=== PATIENT | female | born 1985 | race Two or more races ===

== ENCOUNTER 2024-09-22 14:27 | Emergency (ER) | payer OTHER ==
[~2024-09-22] VITALS: Ht 165.1 cm; Wt 124.3 kg
[2024-09-22] MEDS ORDERED: HUMALOG100 UNIT/2 SQ (16:00)
[2024-09-22] MEDS ORDERED: LANTUS SOL100 UNIT/1 SQ (16:00)
[2024-09-22] MEDS ORDERED: NEURONTIN300 MG (16:01)
[2024-09-22] MEDS ORDERED: TRULICITY1.5 MG/0.5 SQ (16:01)
[2024-09-22] MEDS ORDERED: CHILDREN'S ASPI81 MG PO (16:02)
[2024-09-22] MEDS ORDERED: SYNTHROID150 MCG PO (16:02)
[2024-09-22] MEDS ORDERED: COZAAR25 MG PO (16:02)
[2024-09-22] MEDS ORDERED: SIMVASTATIN20 MG PO (16:02)
[2024-09-22] MEDS ORDERED: CEFTRIAXONE SODIUM 1,000 MG VIAL IM STA (16:43)
[2024-09-22] MEDS ORDERED: DEXAMETHASONE SODIUM PHOSPHATE 4 MG/ML VIAL IM STA (16:43)
[2024-09-22] MEDS ORDERED: KETOROLAC TROMETHAMINE 30 MG VIAL IM STA (16:44)
[2024-09-22] MEDS ORDERED: BACTRIM DS TAB1 EACH PO (16:55)
[2024-09-22] MEDS ORDERED: KETOROLAC TROMETHAMINE 30 MG VIAL ONE (16:57)
[2024-09-22] MEDS ORDERED: CEFTRIAXONE SODIUM 1,000 MG VIAL ONE (16:58)
[2024-09-22] MEDS ORDERED: DEXAMETHASONE SODIUM PHOSPHATE 4 MG/ML VIAL ONE (16:58)
[2024-09-22] MEDS ORDERED: LIDOCAINE HCL 1% 10ML VIAL ONE (16:58)
== END 2024-09-22 17:19 | disposition home or self-care (01) ==
LOC: ER 14:29
DX: S90.812A Abrasion, left foot, initial encounter (principal); L08.9 Local infection of the skin and subcutaneous tissue, unspecified; E11.9 Type 2 diabetes mellitus without complications; Z79.4 Long term (current) use of insulin

== ENCOUNTER 2024-09-24 10:42 | Inpatient (IN) | payer OTHER ==
[~2024-09-24] VITALS: Ht 167.6 cm; Wt 113.4 kg
[~2024-09-24 10:42] MED LIST: BACTRIM DS TAB1 EACH PO; CHILDREN'S ASPI81 MG PO; COZAAR25 MG PO; HUMALOG100 UNIT/2 SQ; LANTUS SOL100 UNIT/1 SQ; NEURONTIN300 MG; SIMVASTATIN20 MG PO; SYNTHROID150 MCG PO; TRULICITY1.5 MG/0.5 SQ
--- NOTE | 2024-09-24 11:57 | NUR ---
PACIENTE ALERTA Y ORIENTADA X3 QUIEN PRESENTA CELLULITIS EN PIE CONTRERAS, EL MISMO PRESENTA LIQUIDO PURULENTO Y AREA ABIERTA, PACIENTE DIABETICA.
[2024-09-24] MEDS ORDERED: 0.9 % SODIUM CHLORIDE 1,000 ML IV STA (12:08)
[2024-09-24] MEDS ORDERED: PIPERACILLIN/TAZOBACTAM SODIUM 3.375 GM VIAL IV ONE ×3 (12:15→23:49)
[2024-09-24 13:27] LABS: HEMATOCRIT 34.2 % (36.0-45.00); HEMOGLOBIN 11.8 g/dL (12.0-15.00); MEAN CORPUSCULAR HEMOGLOBIN 27.8 pg (27.00-32.0); MEAN CORPUSCULAR HGB CONC 34.3 g/dl (32.0-36.0); PLATELET COUNT 295 K/uL (150-450); RED BLOOD COUNT 4.22 M/uL (4.00-6.00); RED CELL DISTRIBUTION WIDTH 15.2 % (11.5-14.5)
[2024-09-24 13:42] LABS: URINE APPEARANCE Clear; URINE BILIRRUBIN Negative (NEGATIVE); URINE BLOOD NHT; URINE COLOR Yellow; URINE LEUKOCYTE Trace; URINE NITRATE Negative; URINE PROTEIN Trace (NEGATIVE)
[2024-09-24 13:45] LABS: URINE BACTERIA 423.3 uL (0.0-1933); URINE EPITHELIAL CELLS 21.5 uL (0.0-38.8); URINE RBC 37.1 uL (0.0-20.8); URINE WBC 165.7 uL (0.0-23.2)
[2024-09-24 13:50] LABS: CALCIUM 9.3 mg/dL (8.5-10.1); CREATININE SERUM 0.85 mg/dL (0.55-1.02); GFR 75.26; INR 1.05; POTASSIUM 4.07 mEq/L (3.5-5.1); PROTHROMBIN TIME 11.4 SECONDS (9.0-11.5)
--- NOTE | 2024-09-24 13:57 | NUR ---
PTE ES ORIENTADA SOBRE TX MEDICO POR ALEJANDRINA SIU. SE CANALIZA A PTE EN BRAZO QUINTIN CON ANGIO #[id number], SE RECOLECTAN MUESTRAS DE LAB Y SE ADMINISTRAN MEDICAMENTOS MAEGAN ORDEN MEDICA BAJO MEDIDAS ASEPTICAS.
[2024-09-24 14:50] LABS: URINE GLUCOSE >=1000 MG/DL (NEGATIVE); URINE KETONE 40 (NEGATIVE)
[2024-09-24] MEDS ORDERED: 0.9 % SODIUM CHLORIDE 1,000 ML IV SCH (19:00)
[2024-09-24] MEDS ORDERED: ACETAMINOPHEN 500 MG GEL..CAP PO PRN (19:00)
[2024-09-24] MEDS ORDERED: GABAPENTIN 100 MG CAPSULE PO SCH (19:01)
[2024-09-24] MEDS ORDERED: INSULIN LISPRO 1,000 UNIT/10 ML UNITS SUBCUTANEO PRN (19:15)
[2024-09-24] MEDS ORDERED: DEXTROSE 50 % IN WATER 0.5 G/ML DISP.SYRIN IV PRN (19:15)
[2024-09-24] MEDS ORDERED: INSULIN LISPRO 1,000 UNIT/10 ML UNITS SUBCUTANEO ONE (20:29)
[2024-09-24 23:35] VITALS: BP 96/65; O2SAT 98
[2024-09-25] MEDS ORDERED: PIPERACILLIN/TAZOBACTAM SODIUM 3.375 GM in DEXTROSE 5 % IN WATER 100 ML IV SCH
[2024-09-25 04:00] VITALS: BP 141/75; O2SAT 97
[2024-09-25] MEDS ORDERED: LEVOTHYROXINE SODIUM 150 MCG TABLET PO SCH (06:00)
[2024-09-25] MEDS ORDERED: VANCOMYCIN HCL 1,000 MG VIAL IV SCH (09:00)
[2024-09-25] MEDS ORDERED: LOSARTAN POTASSIUM 25 MG TABLET PO SCH (09:00)
[2024-09-25] MEDS ORDERED: ENOXAPARIN SODIUM 40 MG/0.4 ML SYRINGE SUBCUTANEO SCH (09:00)
[2024-09-25 09:07] VITALS: BP 131/62; O2SAT 100
[2024-09-25] MEDS ORDERED: SIMVASTATIN 20 MG TABLET PO SCH (17:00)
[2024-09-25] MEDS ORDERED: CHLORHEXIDINE GLUCONATE 120 ML BOTTLE TOP SCH (17:00)
[2024-09-25] MEDS ORDERED: LACTOBACILLUS ACIDOPHILUS 1 CAP CAP PO SCH (17:00)
[2024-09-25] MEDS ORDERED: MUPIROCIN 22 GM OINT..GM TUBE NASAL SCH (17:00)
[2024-09-25 18:39] VITALS: BP 157/69; O2SAT 98
[2024-09-25] MEDS ORDERED: LINEZOLID IN DEXTROSE 5% 600 MG/300 ML PIGGYBAG IV SCH (21:00)
[2024-09-26 01:24] VITALS: BP 143/70
[2024-09-26 05:10] LABS: HEMATOCRIT 30.9 % (36.0-45.00); MEAN CELL VOLUME 80.8 fL (80.00-100.00); MEAN CORPUSCULAR HGB CONC 33.7 g/dl (32.0-36.0); PLATELET COUNT 251 K/uL (150-450); RED BLOOD COUNT 3.83 M/uL (4.00-6.00); RED CELL DISTRIBUTION WIDTH 15.2 % (11.5-14.5)
[2024-09-26 05:23] LABS: HEMOGLOBIN 10.4 g/dL (12.0-15.00); MEAN CORPUSCULAR HEMOGLOBIN 27.1 pg (27.00-32.0)
[2024-09-26 05:24] LABS: ERYTHROCYTE SEDIMENTATION RATE 116 mm/hr
[2024-09-26 06:11] LABS: CHOL HDL RATIO 3.6 (0-5.0); T4 FREE 1.26 NG/ML (0.76-1.46)
[2024-09-26 06:33] LABS: TSH 8.52 uIU/mL (0.358-3.74)
[2024-09-26] MEDS ORDERED: INSULIN LISPRO 1,000 UNIT/10 ML UNITS SUBCUTANEO STA (08:14)
[2024-09-26 08:29] VITALS: BP 130/73; O2SAT 97
[2024-09-26] MEDS ORDERED: INSULIN GLARGINE,HUM.REC.ANLOG 1,000 UNITS/10 ML UNITS SUBCUTANEO SCH ×2 (09:00→21:00)
[2024-09-26] MEDS ORDERED: INSULIN LISPRO 1,000 UNIT/10 ML UNITS SUBCUTANEO SCH (12:00)
[2024-09-26 12:37] LABS: ALBUMIN 2.6 gm/dL (3.4-5.0); BILIRUBIN TOTAL 0.97 mg/dL (0.3-1.2); CALCIUM 8.4 mg/dL (8.5-10.1); CREATININE SERUM 0.64 mg/dL (0.55-1.02); GFR 104.41; GLOBULINA 4.8 G/DL (2.4-3.5); POTASSIUM 3.81 mEq/L (3.5-5.1); TOTAL PROTEIN 7.4 gm/dL (6.4-8.2)
[2024-09-26] MEDS ORDERED: KETOROLAC TROMETHAMINE 30 MG VIAL IM PRN (13:45)
[2024-09-26 16:51] VITALS: BP 157/78; O2SAT 98
[2024-09-27 01:55] VITALS: BP 99/49
[2024-09-27] MEDS ORDERED: LEVOTHYROXINE SODIUM 175 MCG TABLET PO SCH (06:00)
[2024-09-27] MEDS ORDERED: INSULIN LISPRO 1,000 UNIT/10 ML UNITS SUBCUTANEO SCH (08:00)
[2024-09-27 08:56] VITALS: BP 140/76
[2024-09-27] MEDS ORDERED: GABAPENTIN 100 MG CAPSULE PO SCH (17:00)
[2024-09-27 17:29] VITALS: BP 130/60
[2024-09-28 04:29] LABS: ERYTHROCYTE SEDIMENTATION RATE 71 mm/hr
[2024-09-28 04:39] LABS: HEMATOCRIT 28.3 % (36.0-45.00); HEMOGLOBIN 9.5 g/dL (12.0-15.00); MEAN CORPUSCULAR HEMOGLOBIN 26.9 pg (27.00-32.0); MEAN CORPUSCULAR HGB CONC 33.6 g/dl (32.0-36.0); PLATELET COUNT 285 K/uL (150-450); RED BLOOD COUNT 3.54 M/uL (4.00-6.00); RED CELL DISTRIBUTION WIDTH 15.3 % (11.5-14.5)
[2024-09-28 05:16] LABS: ALBUMIN 2.3 gm/dL (3.4-5.0); BILIRUBIN TOTAL 0.66 mg/dL (0.3-1.2); CALCIUM 8.6 mg/dL (8.5-10.1); CREATININE SERUM 0.76 mg/dL (0.55-1.02); GFR 85.63; GLOBULINA 4.4 G/DL (2.4-3.5); POTASSIUM 3.88 mEq/L (3.5-5.1); TOTAL PROTEIN 6.7 gm/dL (6.4-8.2)
[2024-09-28 05:18] LABS: C-REACTIVE PROTEIN 14.7 MG/DL (0.00-0.29)
[2024-09-28 08:42] VITALS: BP 147/78
[2024-09-28] MEDS ORDERED: MEROPENEM 500 MG/VIAL VIAL IV STA (13:54)
[2024-09-28 17:21] VITALS: BP 164/75; O2SAT 98
[2024-09-28] MEDS ORDERED: MEROPENEM 500 MG/VIAL VIAL IV SCH (18:00)
[2024-09-28] MEDS ORDERED: LINEZOLID 600 MG TABLET PO SCH (21:00)
[2024-09-28] MEDS ORDERED: INSULIN GLARGINE,HUM.REC.ANLOG 1,000 UNITS/10 ML UNITS SUBCUTANEO SCH (21:00)
[2024-09-29 02:30] VITALS: BP 107/54
[2024-09-29 08:28] VITALS: BP 140/70
[2024-09-29 16:00] VITALS: BP 140/57
[2024-09-30 01:53] VITALS: BP 118/62; O2SAT 96
[2024-09-30 06:31] LABS: HEMATOCRIT 29.2 % (36.0-45.00); HEMOGLOBIN 9.8 g/dL (12.0-15.00); MEAN CELL VOLUME 81.1 fL (80.00-100.00); MEAN CORPUSCULAR HEMOGLOBIN 27.3 pg (27.00-32.0); MEAN CORPUSCULAR HGB CONC 33.7 g/dl (32.0-36.0); PLATELET COUNT 290 K/uL (150-450); RED CELL DISTRIBUTION WIDTH 15.1 % (11.5-14.5)
[2024-09-30 06:42] LABS: ALBUMIN 2.3 gm/dL (3.4-5.0); BILIRUBIN TOTAL 0.43 mg/dL (0.3-1.2); C-REACTIVE PROTEIN 11.2 MG/DL (0.00-0.29); CALCIUM 8.6 mg/dL (8.5-10.1); CREATININE SERUM 0.6 mg/dL (0.55-1.02); GFR 112.49; GLOBULINA 4.3 G/DL (2.4-3.5); POTASSIUM 4.32 mEq/L (3.5-5.1); TOTAL PROTEIN 6.6 gm/dL (6.4-8.2)
[2024-09-30 08:20] VITALS: BP 156/75; O2SAT 98
[2024-09-30 08:51] LABS: ERYTHROCYTE SEDIMENTATION RATE 118 mm/hr
[2024-09-30 16:00] VITALS: BP 119/52
[2024-09-30] MEDS ORDERED: LORazepam 0.5 MG TABLET PO SCH (21:00)
[2024-09-30] MEDS ORDERED: INSULIN GLARGINE,HUM.REC.ANLOG 1,000 UNITS/10 ML UNITS SUBCUTANEO SCH (21:00)
[2024-10-01 01:28] VITALS: BP 142/58
[2024-10-01 06:47] LABS: HEMATOCRIT 26.9 % (36.0-45.00); HEMOGLOBIN 9.4 g/dL (12.0-15.00); MEAN CELL VOLUME 79.8 fL (80.00-100.00); MEAN CORPUSCULAR HEMOGLOBIN 27.9 pg (27.00-32.0); PLATELET COUNT 302 K/uL (150-450); RED BLOOD COUNT 3.37 M/uL (4.00-6.00); RED CELL DISTRIBUTION WIDTH 15.2 % (11.5-14.5)
[2024-10-01 07:10] LABS: ALBUMIN 2.3 gm/dL (3.4-5.0); BILIRUBIN TOTAL 0.4 mg/dL (0.3-1.2); CALCIUM 8.6 mg/dL (8.5-10.1); CREATININE SERUM 0.7 mg/dL (0.55-1.02); GFR 94.15; GLOBULINA 4.4 G/DL (2.4-3.5); POTASSIUM 4.08 mEq/L (3.5-5.1); TOTAL PROTEIN 6.7 gm/dL (6.4-8.2)
[2024-10-01 08:32] VITALS: BP 161/78; O2SAT 98
[2024-10-01 17:02] VITALS: BP 138/63; O2SAT 97
[2024-10-02 00:50] VITALS: BP 133/64; O2SAT 96
[2024-10-02 08:17] VITALS: BP 134/74; O2SAT 94
[2024-10-02] MEDS ORDERED: MULTIVIT INFUSN,ADULT 4,VIT K 10 ML VIAL IV NR (13:30)
[2024-10-02] MEDS ORDERED: PYRIDOXINE HCL 100 MG TABLET PO NR (13:30)
[2024-10-02] MEDS ORDERED: Cyanocobalamin/Mecobalamin 1 TAB.SL SL NR (13:30)
[2024-10-02] MEDS ORDERED: SOD FERRIC GLUC COMPLX/SUCROSE 62.5 MG in 0.9 % SODIUM CHLORIDE 50 ML IV NR (13:30)
[2024-10-02 16:31] VITALS: BP 156/75; O2SAT 96
[2024-10-03 00:13] VITALS: BP 141/66
[2024-10-03 07:24] LABS: ALBUMIN 2.5 gm/dL (3.4-5.0); BILIRUBIN TOTAL 0.56 mg/dL (0.3-1.2); C-REACTIVE PROTEIN 6.57 MG/DL (0.00-0.29); CALCIUM 8.8 mg/dL (8.5-10.1); CREATININE SERUM 0.67 mg/dL (0.55-1.02); GFR 99.04; GLOBULINA 5.1 G/DL (2.4-3.5); POTASSIUM 4.57 mEq/L (3.5-5.1); TOTAL PROTEIN 7.6 gm/dL (6.4-8.2)
[2024-10-03 08:55] VITALS: BP 145/72; O2SAT 98
[2024-10-03] MEDS ORDERED: MULTIVIT INFUSN,ADULT 4,VIT K 10 ML VIAL IV SCH (09:00)
[2024-10-03] MEDS ORDERED: Cyanocobalamin/Mecobalamin 1 TAB.SL SL SCH (09:00)
[2024-10-03] MEDS ORDERED: SOD FERRIC GLUC COMPLX/SUCROSE 62.5 MG in 0.9 % SODIUM CHLORIDE 50 ML IV SCH (09:00)
[2024-10-03] MEDS ORDERED: PYRIDOXINE HCL 100 MG TABLET PO SCH (09:00)
[2024-10-03 17:23] VITALS: BP 135/62
[2024-10-04 00:18] VITALS: BP 134/71; BP 146/63; O2SAT 96; O2SAT 98
[2024-10-04 08:52] VITALS: BP 150/80; O2SAT 95
[2024-10-04 17:06] VITALS: BP 144/70
[2024-10-04] MEDS ORDERED: INSULIN GLARGINE,HUM.REC.ANLOG 1,000 UNITS/10 ML UNITS SUBCUTANEO SCH (21:00)
[2024-10-05 00:15] VITALS: BP 121/60
[2024-10-05 05:23] LABS: HEMATOCRIT 30.3 % (36.0-45.00); HEMOGLOBIN 10.4 g/dL (12.0-15.00); MEAN CELL VOLUME 80.4 fL (80.00-100.00); MEAN CORPUSCULAR HEMOGLOBIN 27.7 pg (27.00-32.0); MEAN CORPUSCULAR HGB CONC 34.5 g/dl (32.0-36.0); PLATELET COUNT 392 K/uL (150-450); RED BLOOD COUNT 3.77 M/uL (4.00-6.00); RED CELL DISTRIBUTION WIDTH 15.5 % (11.5-14.5)
[2024-10-05 05:56] LABS: ALBUMIN 2.6 gm/dL (3.4-5.0); BILIRUBIN TOTAL 0.49 mg/dL (0.3-1.2); CREATININE SERUM 0.71 mg/dL (0.55-1.02); GFR 92.63; GLOBULINA 4.9 G/DL (2.4-3.5); POTASSIUM 4.5 mEq/L (3.5-5.1); TOTAL PROTEIN 7.5 gm/dL (6.4-8.2)
[2024-10-05 05:57] LABS: C-REACTIVE PROTEIN 2.97 MG/DL (0.00-0.29)
[2024-10-05 09:09] VITALS: BP 135/70; O2SAT 97
[2024-10-05 11:31] LABS: ERYTHROCYTE SEDIMENTATION RATE 72 mm/hr
[2024-10-05 16:44] VITALS: BP 130/70; O2SAT 98
[2024-10-06 02:00] VITALS: BP 109/54
[2024-10-06 08:03] VITALS: BP 136/67
[2024-10-06] MEDS ORDERED: SOD FERRIC GLUC COMPLX/SUCROSE 62.5 MG/5 ML AMPUL IV ONE (08:03)
[2024-10-06 17:24] VITALS: BP 163/72; O2SAT 97
[2024-10-06] MEDS ORDERED: INSULIN GLARGINE,HUM.REC.ANLOG 1,000 UNITS/10 ML UNITS SUBCUTANEO SCH (21:00)
[2024-10-07 02:00] VITALS: BP 109/59
[2024-10-07 07:47] VITALS: BP 112/53
[2024-10-07 16:39] VITALS: BP 125/73; O2SAT 99
[2024-10-08 02:01] VITALS: BP 123/61
[2024-10-08 07:20] LABS: HEMATOCRIT 29.4 % (36.0-45.00); HEMOGLOBIN 10.2 g/dL (12.0-15.00); MEAN CELL VOLUME 80.5 fL (80.00-100.00); MEAN CORPUSCULAR HEMOGLOBIN 27.8 pg (27.00-32.0); MEAN CORPUSCULAR HGB CONC 34.6 g/dl (32.0-36.0); PLATELET COUNT 410 K/uL (150-450); RED BLOOD COUNT 3.65 M/uL (4.00-6.00)
[2024-10-08 07:25] LABS: CREATININE SERUM 0.69 mg/dL (0.55-1.02); GFR 95.73; PHOSPHOROUS 4.3 mg/dL (2.5-4.9); POTASSIUM 4.61 mEq/L (3.5-5.1)
[2024-10-08 08:39] VITALS: BP 131/60
[2024-10-08 16:19] VITALS: BP 132/72; O2SAT 98
[2024-10-09] VITALS: BP 109/57; O2SAT 96
[2024-10-09 09:39] VITALS: BP 109/60; O2SAT 98
[2024-10-09 17:09] VITALS: BP 131/73; O2SAT 98
[2024-10-10 02:35] VITALS: BP 100/56; O2SAT 99
[2024-10-10 08:32] VITALS: BP 109/57
[2024-10-10] MEDS ORDERED: CHLORHEXIDINE GLUCONATE 120 ML BOTTLE TOP SCH (09:00)
[2024-10-10 16:52] VITALS: BP 133/69
[2024-10-10] MEDS ORDERED: PYRIDOXINE HCL100 MG PO (20:02)
[2024-10-10] MEDS ORDERED: Lantus 1000 UNITS/10 SUBCUTANEO ×2 (20:04)
[2024-10-10] MEDS ORDERED: INTESTINEX680 M1 PO (20:04)
[2024-10-10] MEDS ORDERED: Neurin-Sl Tablet Sl SL (20:04)
[2024-10-10] MEDS ORDERED: GABAPENTIN100 MG PO (20:04)
[2024-10-10] MEDS ORDERED: LEVOTHYROXINE175 MCG PO (20:04)
[2024-10-10] MEDS ORDERED: SIMVASTATIN20 MG PO (20:04)
[2024-10-10] MEDS ORDERED: LINEZOLID600 MG PO (20:04)
[2024-10-10] MEDS ORDERED: LOSARTAN POTASS25 MG PO (20:04)
[2024-10-10] MEDS ORDERED: INTEGRA PLUS C1 EACH PO (20:09)
== END 2024-10-10 21:23 | disposition home or self-care (01) | DRG 602 ==
LOC: ER 10:45 → SEC-K 20:06 → MEDJ 20:06 → MEDI 09-25 15:04
PROVIDERS: Emergency Medicine; Internal Medicine; Internal Medicine Endocrinology, Diabetes & Metabolism; ADMIT Internal Medicine; ATTEND Internal Medicine
PROC: BQ3MZZZ Magnetic Resonance Imaging (MRI) of Left Foot (ICD-10-PCS; 2024-09-25)
PROC: B54CZZZ Ultrasonography of Left Lower Extremity Veins (ICD-10-PCS; 2024-09-26)
PROC: 0H9NXZZ Drainage of Left Foot Skin, External Approach (ICD-10-PCS; principal; 2024-10-02)
DX: L03.116 Cellulitis of left lower limb (principal); A41.9 Sepsis, unspecified organism; R65.10 Systemic inflammatory response syndrome (SIRS) of non-infectious origin without acute organ dysfunction; L02.612 Cutaneous abscess of left foot; E11.9 Type 2 diabetes mellitus without complications; Z79.4 Long term (current) use of insulin; E66.9 Obesity, unspecified; I80.9 Phlebitis and thrombophlebitis of unspecified site; D64.9 Anemia, unspecified; H35.00 Unspecified background retinopathy; E03.9 Hypothyroidism, unspecified; Z22.322 Carrier or suspected carrier of Methicillin resistant Staphylococcus aureus